=== PATIENT | female | born 1970 | race Caucasian/White ===

== ENCOUNTER 2016-06-14 13:20 | Emergency (ER) | payer MEDICAID ==
[~2016-06-14] VITALS: Ht 172.7 cm; Wt 104.0 kg
[2016-06-14 15:56] VITALS: BP 136/91
== END 2016-06-14 16:42 | disposition home or self-care (01) ==
LOC: EMS 13:21
DX: J40 Bronchitis, not specified as acute or chronic (principal); F17.210 Nicotine dependence, cigarettes, uncomplicated
CPT/HCPCS: 99283

== ENCOUNTER 2016-09-18 19:04 | Emergency (ER) | payer MEDICAID ==
[~2016-09-18] VITALS: Ht 172.7 cm; Wt 76.4 kg
[2016-09-18 21:12] VITALS: BP 131/76
[2016-09-18] MEDS ORDERED: DEXAMETHASONE SOD PHOS 4 MG/ML 5 ML VIAL IM ONE (21:15)
[2016-09-18] MEDS ORDERED: IBUPROFEN 600 MG TABLET PO ONE (21:15)
== END 2016-09-18 21:13 | disposition home or self-care (01) ==
LOC: EMS 19:05
DX: J02.9 Acute pharyngitis, unspecified (principal); J40 Bronchitis, not specified as acute or chronic; J34.89 Other specified disorders of nose and nasal sinuses; F17.210 Nicotine dependence, cigarettes, uncomplicated
CPT/HCPCS: 71010; 96372; 99283; 99406; J1100

== ENCOUNTER 2021-03-04 21:06 | Emergency (ER) | payer MEDICAID | END 2021-03-05 01:11 | disposition left against medical advice (07) | LOC: EMS 21:25 | DX: M79.606 Pain in leg, unspecified (principal); Z53.21 Procedure and treatment not carried out due to patient leaving prior to being seen by health care provider ==